=== PATIENT | male | born 1985 | race African-American/Black ===

== ENCOUNTER 2018-06-04 09:24 | Inpatient (IN) | payer OTHER ==
[2018-06-04 11:08] VITALS: BMI 15.6
--- NOTE | 2018-06-04 15:46 | HP ---
CIWA Score - Admission Criteria [facility] Guidelines: Admission for Medically Managed Detox: Requires at least one of the followin. CIWA greater than 12 2. Seizures within the past 24 hours 3. Delirium tremens within the past 24 hours 4. Hallucinations within the past 24 hours 5. Acute intervention needed for co occurring medical disorder 6. Acute intervention needed for co occurring psychiatric disorder 7. Severe withdrawal that cannot be handled at a lower level of care (continued vomiting, continued diarrhea, abnormal vital signs) requiring intravenous medication and/or fluids 8. Admission ROS S - HPI Chief Complaint: REHAB SERVICES FOR OPIOD/MARIJUANA/CRYSTAL METH/COCAINE DEPENDENCE. Allergies/Adverse Reactions: Allergies Allergy/AdvReac Type Severity Reaction Status Date / Time grape Allergy Severe Swelling Verified 06/04/18 14:00 NKDA Allergy Uncoded 06/04/18 14:00 History of Present Illness: PATIENT PRESENTS FOR REHAB SERVICES FOR POLYSUBSTANCE USE. THIS IS PATIENTS FIRST ADMISSION TO REHAB. PATIENT STARTED TAKING NON-PRESCRIBED PERCOCET 5 MONTHS, TAKES UP TO 50MG OF OXYCODONE DAILY. LAST TIME HE TOOK MEDICATION WAS 4 DAYS AGO. PATIENT INITIALLY STARTED TAKING PERCOCET PRESCRIPTION FOR CHRONIC BACK PAIN ONE YEAR AGO. PATIENT BEGAN BUYING PILLS AFTER STOPPED PRESCIBING MEDICATION. PATIENT ALSO SNIFFED COCAINE X 3 YEARS, AMOUNT VARIES, LAST USE WAS 4 DAYS AGO. + CRYSTAL METH USE, THC USE AND E PILLS USE. PMH INCLUDES CHRONIC BACK PAIN, DEPRESSION, AND HIV+ SINCE 02/2018-NO CURRENT TREATMENT. +SUICIDE ATTEMPT AT AGE 30. DENIES SI/HI. Exam Limitations: No Limitations - Ebola screening Have you traveled outside of the country in the last 21 days: No Have you had contact with anyone from an Ebola affected area: No Have you been sick,other than usual withdrawal symptoms: No Do you have a fever: No - Review of Systems Constitutional: Night Sweats, Changes in sleep, Unexplained wgt Loss EENT: reports: No Symptoms Reported Respiratory: reports: No Symptoms reported Cardiac: reports: No Symptoms Reported GI: reports: No Symptoms Reported : reports: No Symptoms Reported Musculoskeletal: reports: Back Pain, Muscle Pain Integumentary: reports: No Symptoms Reported Neuro: reports: No Symptoms reported Endocrine: reports: Unexplained Weight Loss Hematology: reports: No Symptoms Reported Psychiatric: reports: Orientated x3, Depressed Patient History - Patient Medical History Hx Anemia: No Hx Asthma: Yes Hx Chronic Obstructive Pulmonary Disease (COPD): No Hx Cancer: No Hx Cardiac Disorders: No Hx Congestive Heart Failure: No Hx Hypertension: No Hx Hypercholesterolemia: No Hx Pacemaker: No HX Cerebrovascular Accident: No Hx Seizures: No Hx Dementia: No Hx Diabetes: No Hx Gastrointestinal Disorders: Yes (acid reflux) Hx Liver Disease: No Hx Genitourinary Disorders: No Hx Sexually Transmitted Disorders: Yes (gonorrhea) Hx Renal Disease (ESRD): No Hx Thyroid Disease: No Hx Human Immunodeficiency Virus (HIV): Yes (DX 02/2018, NOT TREATED ) Hx Hepatitis C: No Hx Depression: Yes Hx Suicide Attempt: Yes (cut left wrist in 2016) Hx Bipolar Disorder: No Hx Schizophrenia: No - Patient Surgical History Past Surgical History: Yes Hx Neurologic Surgery: No Hx Cataract Extraction: No Hx Cardiac Surgery: No Hx Lung Surgery: No Hx Breast Surgery: No Hx Breast Biopsy: No Hx Appendectomy: Yes (at age 19) Hx Cholecystectomy: No Hx Genitourinary Surgery: No Hx Orthopedic Surgery: No Other Surgical History: tonsillectomy at age 24 Anesthesia Reaction: No - PPD History Previous Implant?: Yes Documented Results: Negative w/o proof Implanted On Prior [facility] Admission?: No PPD to be Administered?: Yes - Smoking Cessation Smoking history: Current every day smoker Have you smoked in the past 12 months: Yes Aproximately how many cigarettes per day: 20 Hx Chewing Tobacco Use: No Initiated information on smoking cessation: Yes 'Breaking Loose' booklet given: 06/04/18 - Substance & Tx. History Hx Alcohol Use: No Hx Substance Use: Yes Substance Use Type: Cocaine, Opiates Hx Substance Use Treatment: No - Substances Abused Percocet/Oxycodone Route: Oral Frequency: Daily Amount used: 4-5 tabs. (5-325 mg.) Age of first use: 32 Date of Last Use: 06/01/18 Crystal meth Route: Oral Frequency: 1-2 times per week Amount used: $200-300 Age of first use: 32 Date of Last Use: 05/28/18 Family Disease History - Family Disease History Family Disease History: Heart Disease: Grandparent (, MATERNAL GM) Admission Physical Exam BHS - Vital Signs Vital Signs: Vital Signs - 24 hr 06/04/18 11:07 Temperature 97.0 F L Pulse Rate 87 Respiratory 18 Rate Blood Pressure 130/85 - Physical General Appearance: Yes: No Apparent Distress, Appropriately Dressed, Thin, Anxious HEENTM: Yes: EOMI, Hearing grossly Normal, Normal ENT Inspection, Normocephalic , Normal Voice, MALIKA, Pharynx Normal Respiratory: Yes: Chest Non-Tender, Lungs Clear, Normal Breath Sounds, No Respiratory Distress, No Accessory Muscle Use Neck: Yes: No masses,lesions,Nodules, Supple, Trachea in good position Breast: Yes: Breast Exam Deferred Cardiology: Yes: Regular Rhythm, Regular Rate, S1, S2 Abdominal: Yes: Normal Bowel Sounds, Non Tender, Flat, Soft Genitourinary: Yes: Within Normal Limits Back: Yes: Normal Inspection, Muscle Spasm Musculoskeletal: Yes: full range of Motion, Gait Steady, Back pain Extremities: Yes: Normal Capillary Refill, Normal Inspection, Normal Range of Motion, Non-Tender Neurological: Yes: customer marketing manager II-XII NML intact, Fully Oriented, Alert, Motor Strength 5/5, Normal Response, Depressed Affect, Other (ANXIOUS) Integumentary: Yes: Normal Color, Dry, Warm Lymphatic: Yes: Within Normal Limits - Diagnostic (1) Opioid dependence Current Visit: Yes Status: Chronic Qualifiers: Substance use status: uncomplicated Qualified Code(s): F11.20 - Opioid dependence, uncomplicated (2) Cocaine dependence Current Visit: Yes Status: Chronic Qualifiers: Substance use status: uncomplicated Qualified Code(s): F14.20 - Cocaine dependence, uncomplicated (3) Marijuana dependence Current Visit: Yes Status: Chronic (4) Depressed affect Current Visit: Yes Status: Suspected (5) Weight loss Current Visit: Yes Status: Acute (6) HIV positive Current Visit: Yes Status: Chronic (7) Sleep disorder Current Visit: Yes Status: Chronic Cleared for Admission [facility] - Detox or Rehab Claeared for Rehab Admission: Yes [facility] Breath Alcohol Content Breath Alcohol Content: 0 Urine Drug Screen - Results Drug Screen Negative: No Urine Drug Screen Results: THC-Marijuana Inpatient Rehab Admission - Initial Determination Are CD services needed?: Yes Free of communicable disease: Yes Not in need of hospitalization: Yes - Rehab Admission Criteria Previous failed treatment: Yes Poor recovery environment: Yes Comorbidities: Yes Lacks judgement: No Patient is meeting Inpatient Rehab admission criteria:: Yes
[2018-06-04] MEDS ORDERED: MAGNESIUM CITRATE 300 ML BOTTLE PO PRN (15:54)
[2018-06-04] MEDS ORDERED: P-EPHED 60MG/TRIPROLIDI 2.5MG TABLET PO PRN (15:54)
[2018-06-04] MEDS ORDERED: guaiFENesin/D-METHORPHAN HB 10 ML UNIT-DOSE CUPS PO PRN (15:54)
[2018-06-04] MEDS ORDERED: MAGNESIUM HYDROX 2400MG/30ML ORAL SUSPENSION 30 ML CUP PO PRN (15:54)
[2018-06-04] MEDS ORDERED: MENTHOL/PHENOL 1 EACH UD MM PRN (15:54)
[2018-06-04] MEDS ORDERED: IBUPROFEN 400 MG TABLET (FP) PO PRN (15:54)
[2018-06-04] MEDS ORDERED: ALBUTEROL SO4 8 GM HFA INHALER IH PRN (15:56)
[2018-06-04] MEDS ORDERED: TUBERCULIN PPD 5 TU/0.1ML VIAL ID ONE (19:45)
[2018-06-04] MEDS: THIAMINE HCL 100 MG TABLET (FP) PO SCH (21:19)
[2018-06-04] MEDS: traZODone HCL 50 MG TABLET (FP) PO SCH (21:19)
[2018-06-05] MEDS: ACETAMINOPHEN 325 MG TABLET (FP) PO PRN (00:14)
[2018-06-05] MEDS: MAG HYDROX/AL HYDROX/SIMETH 30 ML UNIT-DOSE CUP PO PRN (00:28)
[2018-06-05 01:54] LABS: URINE APPEARANCE SLCLOUDY; URINE GLUCOSE (UA) NEGATIVE (NEGATIVE); URINE KETONE NEGATIVE (NEGATIVE); URINE LEUK ESTERASE NEGATIVE (NEGATIVE); URINE NITRITE NEGATIVE (NEGATIVE); URINE PROTEIN 1+ (NEGATIVE); URINE UROBILINOGEN 4.0 E.U/dl mg/dL (0.2-1.0)
[2018-06-05 01:59] LABS: URINE COLOR YELLOW
[2018-06-05 02:39] LABS: EPI CELLS RARE /HPF (FEW); URINE BACTERIA RARE /hpf (NONE SEEN); URINE MUCUS FEW
[2018-06-05 10:08] LABS: HEMOGLOBIN 11.5 GM/dL (11.7-16.9); MCH 29.3 pg (25.7-33.7); MCHC 33.7 g/dl (32.0-35.9); MEAN PLT VOLUME 7.6 fl (7.5-11.1); PLATELET COUNT 317 K/MM3 (134-434); RBC 3.91 M/mm3 (4.00-5.60); RDW 14.1 % (11.9-15.9); WHITE BLOOD COUNT 8.6 K/mm3 (4.0-10.0)
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
[2018-06-05] MEDS: NICOTINE 21 MG/24 HOURS TOPICAL PATCH TD SCH (11:00)
[2018-06-05] MEDS: PRENATAL VITAMINS W/ FOLIC ACID TABLET (FP) PO SCH (11:00)
[2018-06-05 11:05] LABS: ALBUMIN 3.6 g/dl (3.4-5.0); ALK PHOS 107 U/L (45-117); ANION GAP 10 MMOL/L (8-16); BILIRUBIN,TOTAL 0.3 mg/dL (0.2-1); BLOOD UREA NITROGEN 11 mg/dL (7-18); CALCIUM 8.9 mg/dL (8.5-10.1); CHLORIDE 99 mmol/L (98-107); CO2 31 mmol/L (21-32); CREATININE 0.9 mg/dL (0.55-1.3); GLUCOSE,RANDOM 98 mg/dL (74-106); POTASSIUM 3.5 mmol/L (3.5-5.1); SGOT/AST 15 U/L (15-37); SGPT/ALT 12 U/L (13-61); SODIUM 139 mmol/L (136-145); TOT PROT 7.9 g/dl (6.4-8.2)
--- NOTE | 2018-06-05 11:59 | EKG ---
Test Reason : Blood Pressure : / mmHG Vent. Rate : 090 BPM Atrial Rate : 090 BPM P-R Int : 140 ms QRS Dur : 088 ms QT Int : 346 ms P-R-T Axes : 084 080 071 degrees QTc Int : 423 ms NORMAL SINUS RHYTHM RIGHT ATRIAL ENLARGEMENT POSSIBLE RIGHT VENTRICULAR HYPERTROPHY NONSPECIFIC T WAVE ABNORMALITY ABNORMAL ECG NO PREVIOUS ECGS AVAILABLE Confirmed by GIOVANI BARTH MD ([id number]) on 06/05/2018 11:59:28 AM Referred By: Confirmed By:GIOVANI BARTH MD
[2018-06-05] MEDS: PANTOPRAZOLE 40 MG TABLET (FP) PO SCH (12:40)
--- NOTE | 2018-06-05 13:24 | PN ---
[facility] Progress Note Note: PATIENT NEW ADMISSION TO REHAB YESTERDAY EVENING FOR OPIOD, COCAINE AND THC DEPENDENCE. PATIENT C/O BODY ACHES, ANXIETY RESTLESSNESS AND HEARTBURN. PATIENT REPORTS HE IS NEWLY DIAGNOSED WITH HIV BUT HAS NOT BEEN TREATED. [place]CP [place]. PATIENT ALSO REQUESTING TO START SUBOXONE TREATMENT. LAST TIME HE TOOK OXYCODONE WAS 5 DAYS AGO PATIENT DETOXED HIMSELF PRIOR TO ADMISSION. +H/O GASTRITIS. Vital Signs Temperature 97.9 F 06/05/18 06:49 Pulse Rate 65 06/05/18 06:49 Respiratory Rate 18 06/05/18 06:49 Blood Pressure 108/75 06/05/18 06:49 O2 Sat by Pulse Oximetry (%) Laboratory Tests 06/04/18 06/05/18 06/05/18 22:27 05:50 05:50 WBC 8.6 RBC 3.91 L Hgb 11.5 L Hct 34.0 L MCV 87.0 MCH 29.3 MCHC 33.7 RDW 14.1 Plt Count 317 MPV 7.6 Sodium 139 Potassium 3.5 Chloride 99 Carbon Dioxide 31 Anion Gap 10 BUN 11 Creatinine 0.9 Creat Clearance w eGFR > 60 Random Glucose 98 Calcium 8.9 Total Bilirubin 0.3 AST 15 ALT 12 L Alkaline Phosphatase 107 Total Protein 7.9 Albumin 3.6 Urine Color Yellow Urine Appearance Slcloudy Urine pH 6.0 Ur Specific [place] 1.026 Urine Protein 1+ H Urine Glucose (UA) Negative Urine Ketones Negative Urine Blood Negative Urine Nitrite Negative Urine Bilirubin 2.0 Urine Urobilinogen 4.0 e.u/dl Ur Leukocyte Esterase Negative Urine WBC (Auto) 3 Urine RBC (Auto) 5 Ur Epithelial Cells Rare Urine Bacteria Rare Urine Mucus Few PE: ALERT AND ORIENTED X 3 SKIN WARM AND DRY CAR S1S2 RESP CTA BL GI SOFT, BS+, NT EXT FULL ROM, AMB AD ESTRADA +ANXIETY AND RESTLESSNESS A/P: WITHDRAWAL SX GERD START PROTONIX 40MG DAILY SPOKE WITH PATIENT AND COUNSELOR JONAH REGARDING CONNECTION TO OUTPATIENT PROGRAM. PATIENT LIVES IN [place] AND GIVEN CONTACT INFORMATION FOR [facility] AT [address] [place] [id number] . PCP AT THAT FACILITY, DR. RODRIGUEZ, IS HIV/HEP C/PCP AND SUBOXONE PROVIDER. PATIENT ENCOURAGED TO MAKE APPOINTMENT TODAY FOR WHEN HE LEAVES REHAB. ONCE APPT MADE AND CONFIRMED WILL START PATIENT ON SUBOXONE. IN MEANTIME, WILL START FLEXERIL FOR BODY ACHES AND CLONIDINE FOR ANXIETY/ WITHDRAWAL SX WITH PARAMETERS TO HOLD FOR BP EQUAL TO OR LESS THAN 100/60. CONTINUE TO MONITOR CLINICALLY
[2018-06-05] MEDS: CYCLOBENZAPRINE HCL 5 MG TABLET PO SCH ×2 (14:38→21:22)
[2018-06-05] MEDS: cloNIDine HCL 0.1 MG TABLET PO PRN (14:38)
[2018-06-05] MEDS: THIAMINE HCL 100 MG TABLET (FP) PO SCH (21:22)
[2018-06-05] MEDS: MIRTAZAPINE 30 MG TABLET (FP) PO SCH (21:22)
[2018-06-05] MEDS: traZODone HCL 50 MG TABLET (FP) PO SCH (21:22)
[2018-06-06] MEDS: CYCLOBENZAPRINE HCL 5 MG TABLET PO SCH ×3 (06:43→21:26)
[2018-06-06] MEDS: NICOTINE 21 MG/24 HOURS TOPICAL PATCH TD SCH (10:06)
[2018-06-06] MEDS: PRENATAL VITAMINS W/ FOLIC ACID TABLET (FP) PO SCH (10:06)
[2018-06-06] MEDS: PANTOPRAZOLE 40 MG TABLET (FP) PO SCH (10:06)
[2018-06-06 13:11] LABS: RPR REACTIVE 1:8 (NONREACTIVE)
[2018-06-06] MEDS: NICOTINE POLACRILEX 2 MG GUM BC PRN (14:56)
[2018-06-06] MEDS ORDERED: BUPRENORPHINE/NALOXONE 2 MG/0.5 MG FILM PACKET SL ONE (15:00)
[2018-06-06 15:42] LABS: TREPONEMA ANTIBODY REACTIVE (NONREACTIVE)
--- NOTE | 2018-06-06 16:27 | PN ---
[facility] COWS - Scale Resting Pulse: 1= [place] 81-100 Sweatin= No chills or Flushing Restless Observation: 1= Difficult to Sit Still Pupil Size: 2= Moderately Dilated Bone or Joint Aches: 2= Severe Diffuse Aches Runny Nose/ Eye Tearin= Nasal Congestion GI Upset > 30mins: 2= Nausea/Diarrhea Tremor Observation of Outstretched Hands: 0= None Yawning Observation: 0= None Anxiety or Irritability: 2=Irritable/Anxious Goose Flesh Skin: 0=Smooth Skin COWS Score: 11 S Progress Note (SOAP) Subjective: PATIENT C/O OPIOD CRAVING, BODY ACHES, CHILLS AND ANXIETY. REQUESTED TO START SUBOXONE. COUNSELOR JONAH WAS ABLE TO CONNECT PATIENT TO [facility] IN [place], [place] AND APPT MADE FOR 06/25/17. PATIENT STATES HE WILL START THERE AND THEN MAYBE TRANSFER TO [facility] TO CONTINUE SUBOXONE TREATMENT AND HIV MANAGEMENT. WOMEN'S HEALTH CARE NURSE PRACTITIONER ALSO SPOKE WITH PATIENT REGARDING +RPR AND T.PALLIDIUM RESULTS. PATIENT STATE HE WAS TREATED IN PAST FOR SYPHILIS MORE THAN 2 YEARS AGO. PATIENT DENIES URINARY DISCOMFORT, FEVER AND PENILE DISCHARGE BUT IS NEWLY DX WITH HIV SINCE 02/2018. PATIENT HAS ENGAGED IN UNPROTECTED SEX IN PAST MONTHS. Vital Signs Temperature 97.5 F L 06/06/18 06:59 Pulse Rate 96 H 06/06/18 09:30 Respiratory Rate 18 06/06/18 09:30 Blood Pressure 121/69 06/06/18 09:30 O2 Sat by Pulse Oximetry (%) Laboratory Tests 06/04/18 06/05/18 06/05/18 22:27 05:50 05:50 WBC 8.6 RBC 3.91 L Hgb 11.5 L Hct 34.0 L MCV 87.0 MCH 29.3 MCHC 33.7 RDW 14.1 Plt Count 317 MPV 7.6 Sodium 139 Potassium 3.5 Chloride 99 Carbon Dioxide 31 Anion Gap 10 BUN 11 Creatinine 0.9 Creat Clearance w eGFR > 60 Random Glucose 98 Calcium 8.9 Total Bilirubin 0.3 AST 15 ALT 12 L Alkaline Phosphatase 107 Total Protein 7.9 Albumin 3.6 Urine Color Yellow Urine Appearance Slcloudy Urine pH 6.0 Ur Specific [place] 1.026 Urine Protein 1+ H Urine Glucose (UA) Negative Urine Ketones Negative Urine Blood Negative Urine Nitrite Negative Urine Bilirubin 2.0 Urine Urobilinogen 4.0 e.u/dl Ur Leukocyte Esterase Negative Urine WBC (Auto) 3 Urine RBC (Auto) 5 Ur Epithelial Cells Rare Urine Bacteria Rare Urine Mucus Few RPR Titer T.pallidum Ab (A) 06/05/18 05:50 WBC RBC Hgb Hct MCV MCH MCHC RDW Plt Count MPV Sodium Potassium Chloride Carbon Dioxide Anion Gap BUN Creatinine Creat Clearance w eGFR Random Glucose Calcium Total Bilirubin AST ALT Alkaline Phosphatase Total Protein Albumin Urine Color Urine Appearance Urine pH Ur Specific [place] Urine Protein Urine Glucose (UA) Urine Ketones Urine Blood Urine Nitrite Urine Bilirubin Urine Urobilinogen Ur Leukocyte Esterase Urine WBC (Auto) Urine RBC (Auto) Ur Epithelial Cells Urine Bacteria Urine Mucus RPR Titer Reactive 1:8 H T.pallidum Ab (A) Reactive Objective: 06/06/18 16:26 PE: ALERT AND ORIENTED X 3 PUPILS MODERATELY DILATED, EOMS INTACT BL SKIN WARM AND DRY EXT FULL ROM, AMB AD ESTRADA +ANXIETY, RESTLESSNESS Assessment: 06/06/18 16:27 SYPHILIS, LIKELY RECENT REINFECTION WITHDRAWAL SX Plan: WILL START SUBOXONE 2MG TODAY THEN DAILY STARTING TOMORROW START PENICILLIN 2.4 UNITS IM WEEKLY STARTING TOMORROW SATURDAY AND THEN WEEKLY X 3 DOSES CONTINUE TO MONITOR CLINICALLY
[2018-06-06] MEDS: MIRTAZAPINE 30 MG TABLET (FP) PO SCH (21:26)
[2018-06-06] MEDS: traZODone HCL 50 MG TABLET (FP) PO SCH (21:26)
[2018-06-06] MEDS: THIAMINE HCL 100 MG TABLET (FP) PO SCH (21:26)
[2018-06-06] MEDS: MELATONIN 5 MG TABLETS PO PRN (21:28)
[2018-06-07] MEDS: SUVOREXANT 10 MG TABLET PO PRN (00:38)
[2018-06-07] MEDS: MAG HYDROX/AL HYDROX/SIMETH 30 ML UNIT-DOSE CUP PO PRN (00:38)
[2018-06-07] MEDS: CYCLOBENZAPRINE HCL 5 MG TABLET PO SCH ×3 (05:52→21:42)
[2018-06-07] MEDS ORDERED: BUPRENORPHINE/NALOXONE 2 MG/0.5 MG FILM PACKET SL SCH (10:00)
[2018-06-07] MEDS: PENICILLIN G BENZATHINE 2,400,000 UNIT/4 ML PFS IM SCH (10:33)
[2018-06-07] MEDS: PANTOPRAZOLE 40 MG TABLET (FP) PO SCH (10:33)
[2018-06-07] MEDS: PRENATAL VITAMINS W/ FOLIC ACID TABLET (FP) PO SCH (10:33)
[2018-06-07] MEDS: NICOTINE 21 MG/24 HOURS TOPICAL PATCH TD SCH (10:33)
[2018-06-07] MEDS: BUPRENORPHINE/NALOXONE 2 MG/0.5 MG FILM PACKET SL SCH (10:33)
[2018-06-07] MEDS: hydrOXYzine PAMOATE 50 MG CAPSULE (FP) PO PRN ×3 (10:40→21:42)
[2018-06-07] MEDS: NICOTINE POLACRILEX 2 MG GUM BC PRN (14:10)
[2018-06-07] MEDS: THIAMINE HCL 100 MG TABLET (FP) PO SCH (21:42)
[2018-06-07] MEDS: MIRTAZAPINE 30 MG TABLET (FP) PO SCH (21:42)
[2018-06-07] MEDS: MELATONIN 5 MG TABLETS PO PRN (21:42)
[2018-06-07] MEDS: traZODone HCL 50 MG TABLET (FP) PO SCH (21:42)
[2018-06-08] MEDS: hydrOXYzine PAMOATE 50 MG CAPSULE (FP) PO PRN ×4 (02:34→21:14)
[2018-06-08] MEDS: CYCLOBENZAPRINE HCL 5 MG TABLET PO SCH ×2 (06:12→14:32)
[2018-06-08] MEDS: BUPRENORPHINE/NALOXONE 2 MG/0.5 MG FILM PACKET SL SCH (10:04)
[2018-06-08] MEDS: PRENATAL VITAMINS W/ FOLIC ACID TABLET (FP) PO SCH (10:04)
[2018-06-08] MEDS: PANTOPRAZOLE 40 MG TABLET (FP) PO SCH (10:04)
[2018-06-08] MEDS: NICOTINE 21 MG/24 HOURS TOPICAL PATCH TD SCH (10:05)
[2018-06-08] MEDS: NICOTINE POLACRILEX 2 MG GUM BC PRN (10:06)
[2018-06-08] MEDS: THIAMINE HCL 100 MG TABLET (FP) PO SCH (21:14)
[2018-06-08] MEDS: SUVOREXANT 10 MG TABLET PO PRN (21:14)
[2018-06-08] MEDS: MIRTAZAPINE 30 MG TABLET (FP) PO SCH (21:14)
[2018-06-08] MEDS: traZODone HCL 50 MG TABLET (FP) PO SCH (21:14)
[2018-06-08] MEDS: CYCLOBENZAPRINE HCL 10 MG TABLET (FP) PO SCH (21:59)
[2018-06-09] MEDS: CYCLOBENZAPRINE HCL 10 MG TABLET (FP) PO SCH ×3 (06:06→21:38)
[2018-06-09] MEDS: hydrOXYzine PAMOATE 50 MG CAPSULE (FP) PO PRN ×3 (10:41→21:38)
[2018-06-09] MEDS: BUPRENORPHINE/NALOXONE 2 MG/0.5 MG FILM PACKET SL SCH (10:41)
[2018-06-09] MEDS: PANTOPRAZOLE 40 MG TABLET (FP) PO SCH (10:41)
[2018-06-09] MEDS: NICOTINE 21 MG/24 HOURS TOPICAL PATCH TD SCH (10:41)
[2018-06-09] MEDS: PRENATAL VITAMINS W/ FOLIC ACID TABLET (FP) PO SCH (10:41)
[2018-06-09] MEDS: SUVOREXANT 10 MG TABLET PO PRN (21:38)
[2018-06-09] MEDS: MIRTAZAPINE 30 MG TABLET (FP) PO SCH (21:38)
[2018-06-09] MEDS: traZODone HCL 50 MG TABLET (FP) PO SCH (21:38)
[2018-06-09] MEDS: THIAMINE HCL 100 MG TABLET (FP) PO SCH (21:38)
[2018-06-09] MEDS: NICOTINE POLACRILEX 2 MG GUM BC PRN (21:39)
[2018-06-10] MEDS: CYCLOBENZAPRINE HCL 10 MG TABLET (FP) PO SCH ×3 (06:04→21:47)
[2018-06-10] MEDS: PRENATAL VITAMINS W/ FOLIC ACID TABLET (FP) PO SCH (09:50)
[2018-06-10] MEDS: PANTOPRAZOLE 40 MG TABLET (FP) PO SCH (09:50)
[2018-06-10] MEDS: hydrOXYzine PAMOATE 50 MG CAPSULE (FP) PO PRN ×2 (09:50→14:11)
[2018-06-10] MEDS: BUPRENORPHINE/NALOXONE 2 MG/0.5 MG FILM PACKET SL SCH (09:51)
[2018-06-10] MEDS: NICOTINE 21 MG/24 HOURS TOPICAL PATCH TD SCH (09:51)
[2018-06-10] MEDS: MAG HYDROX/AL HYDROX/SIMETH 30 ML UNIT-DOSE CUP PO PRN (11:36)
--- NOTE | 2018-06-10 11:39 | PN ---
B[facility] COWS - Scale Resting Pulse: 1= [place] 81-100 Sweatin= Chills/Flushing Restless Observation: 0= Sits Still Pupil Size: 1= Pupils >than Normal Bone or Joint Aches: 2= Severe Diffuse Aches Runny Nose/ Eye Tearin= None GI Upset > 30mins: 2= Nausea/Diarrhea Tremor Observation of Outstretched Hands: 1= Tremor [place], Not Seen Yawning Observation: 0= None Anxiety or Irritability: 1=Feels Anxious/Irritable Goose Flesh Skin: 0=Smooth Skin COWS Score: 9 S Progress Note (SOAP) Subjective: PATIENT SEEN FOR C/O DIARRHEA, CHILLS AND BODY ACHES. PATIENT RESTING IN BED COVERED IN BLANKETS. Objective: 06/10/18 11:34 Vital Signs Temperature 98.5 F 06/10/18 06:46 Pulse Rate 97 H 06/10/18 06:46 Respiratory Rate 06/10/18 06:46 Blood Pressure 98/67 06/10/18 06:46 O2 Sat by Pulse Oximetry (%) Laboratory Tests 06/04/18 06/05/18 06/05/18 22:27 05:50 05:50 WBC 8.6 RBC 3.91 L Hgb 11.5 L Hct 34.0 L MCV 87.0 MCH 29.3 MCHC 33.7 RDW 14.1 Plt Count 317 MPV 7.6 Sodium 139 Potassium 3.5 Chloride 99 Carbon Dioxide 31 Anion Gap 10 BUN 11 Creatinine 0.9 Creat Clearance w eGFR > 60 Random Glucose 98 Calcium 8.9 Total Bilirubin 0.3 AST 15 ALT 12 L Alkaline Phosphatase 107 Total Protein 7.9 Albumin 3.6 Urine Color Yellow Urine Appearance Slcloudy Urine pH 6.0 Ur Specific [place] 1.026 Urine Protein 1+ H Urine Glucose (UA) Negative Urine Ketones Negative Urine Blood Negative Urine Nitrite Negative Urine Bilirubin 2.0 Urine Urobilinogen 4.0 e.u/dl Ur Leukocyte Esterase Negative Urine WBC (Auto) 3 Urine RBC (Auto) 5 Ur Epithelial Cells Rare Urine Bacteria Rare Urine Mucus Few RPR Titer T.pallidum Ab (A) 06/05/18 05:50 WBC RBC Hgb Hct MCV MCH MCHC RDW Plt Count MPV Sodium Potassium Chloride Carbon Dioxide Anion Gap BUN Creatinine Creat Clearance w eGFR Random Glucose Calcium Total Bilirubin AST ALT Alkaline Phosphatase Total Protein Albumin Urine Color Urine Appearance Urine pH Ur Specific [place] Urine Protein Urine Glucose (UA) Urine Ketones Urine Blood Urine Nitrite Urine Bilirubin Urine Urobilinogen Ur Leukocyte Esterase Urine WBC (Auto) Urine RBC (Auto) Ur Epithelial Cells Urine Bacteria Urine Mucus RPR Titer Reactive 1:8 H T.pallidum Ab (MHA) Reactive PE: SKIN WARM AND DRY ALERT AND ORIENTED X 3 CAR S1S2 RESP CTA BL GI SOFT, FLAT BS + NT EXT FULL ROM, NO EDEMA Assessment: 06/10/18 11:35 WITHDRAWAL SX Plan: WILL INCREASE SUBOXONE TO 4MG DAILY PATIENT CURRENTLY BEING TREATED FOR SYPHILIS, #2 DOSE DUE THIS Saturday06/14/18 SPOKE WITH PATIENT AT LENGTH REGARDING CURRENT HIV STATUS AND RISK FOR OPPORTUNISTIC INFECTIONS. PATIENT EDUCATED TO REPORTS SYMPTOMS OF COUGH, FEVER, CHEST PAIN AND PERSISTENT DIARRHEA TO NURSING STAFF/PROVIDER. PATIENT ACKNOWLEDGES NEED TO HAVE TREATMENT FOR HIV AND PREFERS TO DO SO ONCE D/C FROM REHAB. PATIENT IS CONNECT TO [facility] AND HAS APPT SCHEDULE FOR . WILL CONTINUE TO MONITOR PATIENT CLINICALLY
[2018-06-10] MEDS: NICOTINE POLACRILEX 2 MG GUM BC PRN ×2 (14:12→21:50)
[2018-06-10] MEDS ORDERED: BUPRENORPHINE/NALOXONE 2 MG/0.5 MG FILM PACKET SL ONE (18:00)
[2018-06-10] MEDS: traZODone HCL 50 MG TABLET (FP) PO SCH (21:47)
[2018-06-10] MEDS: THIAMINE HCL 100 MG TABLET (FP) PO SCH (21:47)
[2018-06-10] MEDS: MIRTAZAPINE 30 MG TABLET (FP) PO SCH (21:47)
[2018-06-10] MEDS: SUVOREXANT 10 MG TABLET PO PRN (21:49)
[2018-06-11] MEDS: CYCLOBENZAPRINE HCL 10 MG TABLET (FP) PO SCH ×3 (06:00→21:42)
[2018-06-11] MEDS: PRENATAL VITAMINS W/ FOLIC ACID TABLET (FP) PO SCH (09:48)
[2018-06-11] MEDS: PANTOPRAZOLE 40 MG TABLET (FP) PO SCH (09:49)
[2018-06-11] MEDS: hydrOXYzine PAMOATE 50 MG CAPSULE (FP) PO PRN ×3 (09:49→21:42)
[2018-06-11] MEDS: BUPRENORPHINE/NALOXONE 2 MG/0.5 MG FILM PACKET SL SCH (09:49)
[2018-06-11] MEDS: NICOTINE 21 MG/24 HOURS TOPICAL PATCH TD SCH (09:49)
[2018-06-11] MEDS: NICOTINE POLACRILEX 2 MG GUM BC PRN ×2 (16:53→21:43)
[2018-06-11] MEDS: MIRTAZAPINE 30 MG TABLET (FP) PO SCH (21:42)
[2018-06-11] MEDS: SUVOREXANT 10 MG TABLET PO PRN (21:42)
[2018-06-11] MEDS: THIAMINE HCL 100 MG TABLET (FP) PO SCH (21:42)
[2018-06-11] MEDS: traZODone HCL 50 MG TABLET (FP) PO SCH (21:42)
[2018-06-12] MEDS: CYCLOBENZAPRINE HCL 10 MG TABLET (FP) PO SCH ×3 (05:53→21:33)
[2018-06-12] MEDS: PANTOPRAZOLE 40 MG TABLET (FP) PO SCH (10:26)
[2018-06-12] MEDS: NICOTINE 21 MG/24 HOURS TOPICAL PATCH TD SCH (10:26)
[2018-06-12] MEDS: BUPRENORPHINE/NALOXONE 2 MG/0.5 MG FILM PACKET SL SCH (10:26)
[2018-06-12] MEDS: PRENATAL VITAMINS W/ FOLIC ACID TABLET (FP) PO SCH (10:26)
[2018-06-12] MEDS: hydrOXYzine PAMOATE 50 MG CAPSULE (FP) PO PRN ×3 (10:26→21:33)
[2018-06-12] MEDS: traZODone HCL 50 MG TABLET (FP) PO SCH (21:33)
[2018-06-12] MEDS: MIRTAZAPINE 30 MG TABLET (FP) PO SCH (21:33)
[2018-06-12] MEDS: SUVOREXANT 10 MG TABLET PO PRN (21:33)
[2018-06-12] MEDS: THIAMINE HCL 100 MG TABLET (FP) PO SCH (21:33)
[2018-06-13] MEDS: CYCLOBENZAPRINE HCL 10 MG TABLET (FP) PO SCH ×3 (06:37→21:38)
[2018-06-13] MEDS: PANTOPRAZOLE 40 MG TABLET (FP) PO SCH (09:40)
[2018-06-13] MEDS: PRENATAL VITAMINS W/ FOLIC ACID TABLET (FP) PO SCH (09:42)
[2018-06-13] MEDS: NICOTINE 21 MG/24 HOURS TOPICAL PATCH TD SCH (09:42)
[2018-06-13] MEDS: BUPRENORPHINE/NALOXONE 2 MG/0.5 MG FILM PACKET SL SCH (09:44)
[2018-06-13] MEDS: hydrOXYzine PAMOATE 50 MG CAPSULE (FP) PO PRN ×3 (09:44→21:38)
[2018-06-13] MEDS: NICOTINE POLACRILEX 2 MG GUM BC PRN (15:09)
[2018-06-13] MEDS: SUVOREXANT 10 MG TABLET PO PRN (21:38)
[2018-06-13] MEDS: traZODone HCL 50 MG TABLET (FP) PO SCH (21:38)
[2018-06-13] MEDS: MIRTAZAPINE 30 MG TABLET (FP) PO SCH (21:38)
[2018-06-13] MEDS: THIAMINE HCL 100 MG TABLET (FP) PO SCH (21:38)
[2018-06-14] MEDS: CYCLOBENZAPRINE HCL 10 MG TABLET (FP) PO SCH ×3 (06:14→21:14)
[2018-06-14] MEDS: NICOTINE 21 MG/24 HOURS TOPICAL PATCH TD SCH (10:05)
[2018-06-14] MEDS: PRENATAL VITAMINS W/ FOLIC ACID TABLET (FP) PO SCH (10:05)
[2018-06-14] MEDS: PANTOPRAZOLE 40 MG TABLET (FP) PO SCH (10:05)
[2018-06-14] MEDS: BUPRENORPHINE/NALOXONE 2 MG/0.5 MG FILM PACKET SL SCH (10:06)
[2018-06-14] MEDS: hydrOXYzine PAMOATE 50 MG CAPSULE (FP) PO PRN ×2 (10:06→21:15)
[2018-06-14] MEDS: PENICILLIN G BENZATHINE 2,400,000 UNIT/4 ML PFS IM SCH (10:11)
[2018-06-14] MEDS: NICOTINE POLACRILEX 2 MG GUM BC PRN (13:25)
[2018-06-14] MEDS: MIRTAZAPINE 30 MG TABLET (FP) PO SCH (21:14)
[2018-06-14] MEDS: traZODone HCL 50 MG TABLET (FP) PO SCH (21:14)
[2018-06-14] MEDS: SUVOREXANT 10 MG TABLET PO PRN (21:14)
[2018-06-14] MEDS: THIAMINE HCL 100 MG TABLET (FP) PO SCH (21:14)
[2018-06-15] MEDS: CYCLOBENZAPRINE HCL 10 MG TABLET (FP) PO SCH ×3 (06:05→21:50)
[2018-06-15] MEDS: PRENATAL VITAMINS W/ FOLIC ACID TABLET (FP) PO SCH (09:47)
[2018-06-15] MEDS: PANTOPRAZOLE 40 MG TABLET (FP) PO SCH (09:47)
[2018-06-15] MEDS: NICOTINE 21 MG/24 HOURS TOPICAL PATCH TD SCH (09:47)
[2018-06-15] MEDS: BUPRENORPHINE/NALOXONE 2 MG/0.5 MG FILM PACKET SL SCH (09:48)
[2018-06-15] MEDS: hydrOXYzine PAMOATE 50 MG CAPSULE (FP) PO PRN ×3 (09:48→21:51)
[2018-06-15] MEDS: traZODone HCL 50 MG TABLET (FP) PO SCH (21:49)
[2018-06-15] MEDS: THIAMINE HCL 100 MG TABLET (FP) PO SCH (21:49)
[2018-06-15] MEDS: MIRTAZAPINE 30 MG TABLET (FP) PO SCH (21:50)
[2018-06-15] MEDS: SUVOREXANT 10 MG TABLET PO PRN (21:51)
[2018-06-15] MEDS ORDERED: SUVOREXANT 10 MG TABLET PO PRN (22:00)
[2018-06-16] MEDS: NICOTINE POLACRILEX 2 MG GUM BC PRN (06:01)
[2018-06-16] MEDS: CYCLOBENZAPRINE HCL 10 MG TABLET (FP) PO SCH ×3 (06:01→21:42)
[2018-06-16] MEDS: NICOTINE 21 MG/24 HOURS TOPICAL PATCH TD SCH (10:08)
[2018-06-16] MEDS: PRENATAL VITAMINS W/ FOLIC ACID TABLET (FP) PO SCH (10:09)
[2018-06-16] MEDS: BUPRENORPHINE/NALOXONE 2 MG/0.5 MG FILM PACKET SL SCH (10:09)
[2018-06-16] MEDS: PANTOPRAZOLE 40 MG TABLET (FP) PO SCH (10:09)
[2018-06-16] MEDS: hydrOXYzine PAMOATE 50 MG CAPSULE (FP) PO PRN ×3 (10:10→21:42)
[2018-06-16] MEDS: cloNIDine HCL 0.1 MG TABLET PO PRN (13:35)
[2018-06-16] MEDS: LOPERAMIDE HCL 2 MG CAPSULE PO PRN (21:41)
[2018-06-16] MEDS: THIAMINE HCL 100 MG TABLET (FP) PO SCH (21:41)
[2018-06-16] MEDS: traZODone HCL 50 MG TABLET (FP) PO SCH (21:42)
[2018-06-16] MEDS: MIRTAZAPINE 30 MG TABLET (FP) PO SCH (21:42)
[2018-06-17] MEDS: CYCLOBENZAPRINE HCL 10 MG TABLET (FP) PO SCH ×3 (05:46→21:37)
[2018-06-17] MEDS: NICOTINE POLACRILEX 2 MG GUM BC PRN (05:46)
[2018-06-17] MEDS: LOPERAMIDE HCL 2 MG CAPSULE PO PRN (05:46)
--- NOTE | 2018-06-17 09:49 | PN ---
[facility] Progress Note Note: PATIENT C/O DIARRHEA WITH NO RELIEF FROM IMMODIUM SINCE YESTERDAY. STATES HE HAD OVER 5 LOOSE BOWEL MOVEMENTS IN 24 HOURS. PATIENT DENIES NAUSEA, FEVER AND VOMITING. Vital Signs Temperature 98.7 F 06/17/18 06:33 Pulse Rate 115 H 06/17/18 06:33 Respiratory Rate 20 06/17/18 06:33 Blood Pressure 107/67 06/17/18 06:33 O2 Sat by Pulse Oximetry (%) PE: ALERT AND ORIENTED X 3 SKIN WARM AND DRY GI SOFT, FLAT, BS + EXT FULL ROM, NO EDEMA A/P: DIARRHEA WILL D/C IMMODIUM START LOMOTIL PRN GINGERALE TOLERATED CONTINUE TO MONITOR CLINICALLY
[2018-06-17] MEDS: PRENATAL VITAMINS W/ FOLIC ACID TABLET (FP) PO SCH (09:54)
[2018-06-17] MEDS: BUPRENORPHINE/NALOXONE 2 MG/0.5 MG FILM PACKET SL SCH (09:54)
[2018-06-17] MEDS: PANTOPRAZOLE 40 MG TABLET (FP) PO SCH (09:54)
[2018-06-17] MEDS: hydrOXYzine PAMOATE 50 MG CAPSULE (FP) PO PRN ×3 (09:55→21:38)
[2018-06-17] MEDS: NICOTINE 21 MG/24 HOURS TOPICAL PATCH TD SCH (09:55)
[2018-06-17] MEDS: DIPHENOXYLATE 2.5/ATROPINE.025 1 COMBO TABLET PO PRN ×2 (09:57→21:41)
[2018-06-17] MEDS: traZODone HCL 50 MG TABLET (FP) PO SCH (21:37)
[2018-06-17] MEDS: MIRTAZAPINE 30 MG TABLET (FP) PO SCH (21:37)
[2018-06-17] MEDS: THIAMINE HCL 100 MG TABLET (FP) PO SCH (22:13)
[2018-06-18] MEDS: DIPHENOXYLATE 2.5/ATROPINE.025 1 COMBO TABLET PO PRN ×2 (05:47→21:30)
[2018-06-18] MEDS: CYCLOBENZAPRINE HCL 10 MG TABLET (FP) PO SCH ×3 (05:47→21:29)
[2018-06-18] MEDS: PRENATAL VITAMINS W/ FOLIC ACID TABLET (FP) PO SCH (10:34)
[2018-06-18] MEDS: PANTOPRAZOLE 40 MG TABLET (FP) PO SCH (10:34)
[2018-06-18] MEDS: NICOTINE 21 MG/24 HOURS TOPICAL PATCH TD SCH (10:34)
[2018-06-18] MEDS: hydrOXYzine PAMOATE 50 MG CAPSULE (FP) PO PRN ×2 (10:41→21:29)
[2018-06-18] MEDS: cloNIDine HCL 0.1 MG TABLET PO PRN (10:41)
--- NOTE | 2018-06-18 11:39 | PN ---
[facility] Progress Note Note: PATIENT SEEN FOR C/O DIARRHEA. PATIENT STATES DIARRHEA LEAKS OUT OF RECTUM INVOLUNTARILY. PATIENT DENIES CHEST PAIN, SOB, N/V, FOUL STOOL ODOR AND FEVER. CURRENTLY ON BICILLIN INJECTION FOR SYPHILIS. PATIENT ANXIOUS ABOUT SYMPTOMS. Vital Signs Temperature 98.3 F 06/18/18 06:37 Pulse Rate 113 H 06/18/18 06:37 Respiratory Rate 20 06/18/18 06:37 Blood Pressure 114/85 06/18/18 06:37 O2 Sat by Pulse Oximetry (%) PE: ALERT AND ORIENTED X 3 SKIN WARM AND DRY EXT FULL ROM, NO EDEMA AMB AD ESTRADA +ANXIETY A/P: DIARRHEA SINUS FREQUENT TACHYCARDIA WILL CONTINUE LOMOTIL ENCOURAGE ORAL FLUIDS LACTOBACILLUS ONE TAB DAILY ORDERED STOOL FOR CDIFF REPEAT EKG TODAY
[2018-06-18] MEDS: BUPRENORPHINE/NALOXONE 2 MG/0.5 MG FILM PACKET SL SCH ×2 (12:13→21:29)
[2018-06-18] MEDS: LACTOBACILLUS ACIDOPHILUS 1 TABLET PO SCH (14:31)
--- NOTE | 2018-06-18 19:08 | EKG ---
Test Reason : Blood Pressure : / mmHG Vent. Rate : 104 BPM Atrial Rate : 104 BPM P-R Int : 152 ms QRS Dur : 080 ms QT Int : 340 ms P-R-T Axes : 078 082 071 degrees QTc Int : 447 ms POOR DATA QUALITY, INTERPRETATION MAY BE ADVERSELY AFFECTED SINUS TACHYCARDIA RIGHT ATRIAL ENLARGEMENT ST ELEVATION, CONSIDER EARLY REPOLARIZATION, PERICARDITIS, OR INJURY NONSPECIFIC ST AND T WAVE ABNORMALITY ABNORMAL ECG WHEN COMPARED WITH ECG OF 04-JUN-2018 17:15, NO SIGNIFICANT CHANGE WAS FOUND Confirmed by NIDIA ROUSE, CHANDRIKA ([id number]) on 06/18/2018 7:07:41 PM Referred By: Confirmed By:CHANDRIKA JACOB MD
[2018-06-18] MEDS: THIAMINE HCL 100 MG TABLET (FP) PO SCH (21:28)
[2018-06-18] MEDS: traZODone HCL 50 MG TABLET (FP) PO SCH (21:29)
[2018-06-18] MEDS: MIRTAZAPINE 30 MG TABLET (FP) PO SCH (21:29)
[2018-06-19] MEDS: CYCLOBENZAPRINE HCL 10 MG TABLET (FP) PO SCH ×3 (06:12→21:13)
[2018-06-19] MEDS: PANTOPRAZOLE 40 MG TABLET (FP) PO SCH (10:52)
[2018-06-19] MEDS: LACTOBACILLUS ACIDOPHILUS 1 TABLET PO SCH (10:52)
[2018-06-19] MEDS: NICOTINE 21 MG/24 HOURS TOPICAL PATCH TD SCH (10:52)
[2018-06-19] MEDS: PRENATAL VITAMINS W/ FOLIC ACID TABLET (FP) PO SCH (10:52)
[2018-06-19] MEDS: BUPRENORPHINE/NALOXONE 2 MG/0.5 MG FILM PACKET SL SCH ×2 (10:52→21:13)
[2018-06-19] MEDS: hydrOXYzine PAMOATE 50 MG CAPSULE (FP) PO PRN ×3 (10:53→21:18)
[2018-06-19] MEDS: DIPHENOXYLATE 2.5/ATROPINE.025 1 COMBO TABLET PO PRN ×2 (10:59→21:19)
[2018-06-19] MEDS: MIRTAZAPINE 30 MG TABLET (FP) PO SCH (21:13)
[2018-06-19] MEDS: THIAMINE HCL 100 MG TABLET (FP) PO SCH (21:13)
[2018-06-19] MEDS: traZODone HCL 50 MG TABLET (FP) PO SCH (21:13)
[2018-06-19] MEDS: SUVOREXANT 10 MG TABLET PO PRN (21:16)
[2018-06-20] MEDS: CYCLOBENZAPRINE HCL 10 MG TABLET (FP) PO SCH ×3 (06:17→21:14)
[2018-06-20] MEDS: BUPRENORPHINE/NALOXONE 2 MG/0.5 MG FILM PACKET SL SCH (10:35)
[2018-06-20] MEDS: PRENATAL VITAMINS W/ FOLIC ACID TABLET (FP) PO SCH (10:35)
[2018-06-20] MEDS: hydrOXYzine PAMOATE 50 MG CAPSULE (FP) PO PRN ×2 (10:35→21:13)
[2018-06-20] MEDS: NICOTINE 21 MG/24 HOURS TOPICAL PATCH TD SCH (10:36)
[2018-06-20] MEDS: LACTOBACILLUS ACIDOPHILUS 1 TABLET PO SCH (10:36)
[2018-06-20] MEDS: PANTOPRAZOLE 40 MG TABLET (FP) PO SCH (10:36)
[2018-06-20] MEDS: NICOTINE POLACRILEX 2 MG GUM BC PRN (10:36)
--- NOTE | 2018-06-20 11:21 | PN ---
S Progress Note Note: CDIFF RESULTS NEGATIVE FOR ANTIGEN. PATIENT STATES BOWEL MOVEMENTS MORE FORMED. WILL D/C LOMOTIL AND ADD PEPTO-BISMUL DAILY. CONTINUE TO MONITOR CLINICALLY.
[2018-06-20] MEDS: BISMUTH SUBSALICYLATE 262 MG/15 ML BTL PO SCH (14:10)
--- NOTE | 2018-06-20 14:34 | PN ---
[facility] COWS - Scale Resting Pulse: 2= NM 101-120 Sweatin= Chills/Flushing Restless Observation: 1= Difficult to Sit Still Pupil Size: 2= Moderately Dilated Bone or Joint Aches: 1= Mild Discomfort Runny Nose/ Eye Tearin= None GI Upset > 30mins: 2= Nausea/Diarrhea Tremor Observation of Outstretched Hands: 1= Tremor [place], Not Seen Yawning Observation: 0= None Anxiety or Irritability: 1=Feels Anxious/Irritable Goose Flesh Skin: 0=Smooth Skin COWS Score: 11 S Progress Note (SOAP) Subjective: PATIENT C/O ANXIETY, DIARRHEA (IMPROVED BUT ONGOING), RESTLESSNESS AND CHILLS. Objective: 06/20/18 14:31 Vital Signs Temperature 98.7 F 06/20/18 06:46 Pulse Rate 103 H 06/20/18 06:46 Respiratory Rate 18 06/20/18 06:46 Blood Pressure 113/68 06/20/18 06:46 O2 Sat by Pulse Oximetry (%) Laboratory Tests 06/04/18 06/05/18 06/05/18 22:27 05:50 05:50 WBC 8.6 RBC 3.91 L Hgb 11.5 L Hct 34.0 L MCV 87.0 MCH 29.3 MCHC 33.7 RDW 14.1 Plt Count 317 MPV 7.6 Sodium 139 Potassium 3.5 Chloride 99 Carbon Dioxide 31 Anion Gap 10 BUN 11 Creatinine 0.9 Creat Clearance w eGFR > 60 Random Glucose 98 Calcium 8.9 Total Bilirubin 0.3 AST 15 ALT 12 L Alkaline Phosphatase 107 Total Protein 7.9 Albumin 3.6 Urine Color Yellow Urine Appearance Slcloudy Urine pH 6.0 Ur Specific [place] 1.026 Urine Protein 1+ H Urine Glucose (UA) Negative Urine Ketones Negative Urine Blood Negative Urine Nitrite Negative Urine Bilirubin 2.0 Urine Urobilinogen 4.0 e.u/dl Ur Leukocyte Esterase Negative Urine WBC (Auto) 3 Urine RBC (Auto) 5 Ur Epithelial Cells Rare Urine Bacteria Rare Urine Mucus Few RPR Titer T.pallidum Ab ([facility]) 06/05/18 05:50 WBC RBC Hgb Hct MCV MCH MCHC RDW Plt Count MPV Sodium Potassium Chloride Carbon Dioxide Anion Gap BUN Creatinine Creat Clearance w eGFR Random Glucose Calcium Total Bilirubin AST ALT Alkaline Phosphatase Total Protein Albumin Urine Color Urine Appearance Urine pH Ur Specific [place] Urine Protein Urine Glucose (UA) Urine Ketones Urine Blood Urine Nitrite Urine Bilirubin Urine Urobilinogen Ur Leukocyte Esterase Urine WBC (Auto) Urine RBC (Auto) Ur Epithelial Cells Urine Bacteria Urine Mucus RPR Titer Reactive 1:8 H T.pallidum Ab ([facility]) Reactive PE: ALERT AND ORIENTED X 3 SKIN +GOOSEFLESH EXT FULL ROM, NO EDEMA +ANXIETY, +RESTLESSNESS Assessment: 06/20/18 14:33 WITHDRAWAL SX Plan: INCREASE SUBOXONE TO 8MG/2MG DAILY STARTING TOMORROW ENCOURAGE ORAL FLUIDS CONTINUE TO MONITOR CLINICALLY
[2018-06-20] MEDS: MIRTAZAPINE 30 MG TABLET (FP) PO SCH (21:13)
[2018-06-20] MEDS: SUVOREXANT 10 MG TABLET PO PRN (21:13)
[2018-06-20] MEDS: THIAMINE HCL 100 MG TABLET (FP) PO SCH (21:14)
[2018-06-20] MEDS: traZODone HCL 50 MG TABLET (FP) PO SCH (21:14)
[2018-06-20] MEDS ORDERED: BUPRENORPHINE/NALOXONE 2 MG/0.5 MG FILM PACKET SL ONE (22:00)
[2018-06-20] MEDS ORDERED: PT OWN MED DRAWER 7, Y5N ONE (22:07)
[2018-06-21] MEDS: CYCLOBENZAPRINE HCL 10 MG TABLET (FP) PO SCH ×3 (06:08→21:23)
[2018-06-21] MEDS: hydrOXYzine PAMOATE 50 MG CAPSULE (FP) PO PRN ×3 (10:04→21:23)
[2018-06-21] MEDS: PANTOPRAZOLE 40 MG TABLET (FP) PO SCH (10:04)
[2018-06-21] MEDS: PRENATAL VITAMINS W/ FOLIC ACID TABLET (FP) PO SCH (10:04)
[2018-06-21] MEDS: NICOTINE 21 MG/24 HOURS TOPICAL PATCH TD SCH (10:05)
[2018-06-21] MEDS: BUPRENORPHINE/NALOXONE 8 MG/2 MG FILM PACKET SL SCH (10:05)
[2018-06-21] MEDS: LACTOBACILLUS ACIDOPHILUS 1 TABLET PO SCH (10:06)
[2018-06-21] MEDS: BISMUTH SUBSALICYLATE 262 MG/15 ML BTL PO SCH (10:07)
[2018-06-21] MEDS: PENICILLIN G BENZATHINE 2,400,000 UNIT/4 ML PFS IM SCH (10:24)
[2018-06-21] MEDS: THIAMINE HCL 100 MG TABLET (FP) PO SCH (21:22)
[2018-06-21] MEDS: SUVOREXANT 10 MG TABLET PO PRN (21:22)
[2018-06-21] MEDS: traZODone HCL 50 MG TABLET (FP) PO SCH (21:23)
[2018-06-21] MEDS: MIRTAZAPINE 30 MG TABLET (FP) PO SCH (21:23)
[2018-06-21] MEDS ORDERED: SUVOREXANT 10 MG TABLET PO PRN (22:00)
[2018-06-22] MEDS: CYCLOBENZAPRINE HCL 10 MG TABLET (FP) PO SCH ×3 (05:58→21:15)
[2018-06-22] MEDS: hydrOXYzine PAMOATE 50 MG CAPSULE (FP) PO PRN ×4 (05:59→21:15)
[2018-06-22] MEDS: BUPRENORPHINE/NALOXONE 8 MG/2 MG FILM PACKET SL SCH (09:56)
[2018-06-22] MEDS: PRENATAL VITAMINS W/ FOLIC ACID TABLET (FP) PO SCH (09:57)
[2018-06-22] MEDS: PANTOPRAZOLE 40 MG TABLET (FP) PO SCH (09:57)
[2018-06-22] MEDS: NICOTINE 21 MG/24 HOURS TOPICAL PATCH TD SCH (09:57)
[2018-06-22] MEDS: LACTOBACILLUS ACIDOPHILUS 1 TABLET PO SCH (09:58)
[2018-06-22] MEDS: BISMUTH SUBSALICYLATE 262 MG/15 ML BTL PO SCH (09:59)
[2018-06-22] MEDS ORDERED: PT OWN MED DRAWER 7, Y5N ONE (09:59)
[2018-06-22] MEDS: NICOTINE POLACRILEX 2 MG GUM BC PRN ×3 (10:00→21:16)
[2018-06-22] MEDS: traZODone HCL 50 MG TABLET (FP) PO SCH (21:15)
[2018-06-22] MEDS: THIAMINE HCL 100 MG TABLET (FP) PO SCH (21:15)
[2018-06-22] MEDS: MIRTAZAPINE 30 MG TABLET (FP) PO SCH (21:15)
[2018-06-23] MEDS: CYCLOBENZAPRINE HCL 10 MG TABLET (FP) PO SCH ×3 (06:10→21:16)
[2018-06-23] MEDS: PRENATAL VITAMINS W/ FOLIC ACID TABLET (FP) PO SCH (09:41)
[2018-06-23] MEDS: NICOTINE 21 MG/24 HOURS TOPICAL PATCH TD SCH (09:41)
[2018-06-23] MEDS: PANTOPRAZOLE 40 MG TABLET (FP) PO SCH (09:41)
[2018-06-23] MEDS: BUPRENORPHINE/NALOXONE 8 MG/2 MG FILM PACKET SL SCH (09:41)
[2018-06-23] MEDS: hydrOXYzine PAMOATE 50 MG CAPSULE (FP) PO PRN ×3 (09:42→21:17)
[2018-06-23] MEDS: NICOTINE POLACRILEX 2 MG GUM BC PRN ×2 (09:43→14:28)
[2018-06-23] MEDS: LACTOBACILLUS ACIDOPHILUS 1 TABLET PO SCH (10:00)
[2018-06-23] MEDS: BISMUTH SUBSALICYLATE 262 MG/15 ML BTL PO SCH (10:00)
--- NOTE | 2018-06-23 13:19 | PN ---
S Progress Note Note: PATIENT C/O RASH TO BILATERAL FOREARM AND DRY SKIN. PATIENT ALERT AND ORIENTED X 3, SKIN WARM AND DRY. + MACULAR RED RASH TO BILATERAL FOREARMS. NO LESIONS OR OPEN AREAS NOTED. A/P RASH/ECZEMA. WILL START HYDROCORTISONE CREAM TO RASH BID AND CONTINUE TO MONITOR CLINICALLY. Vital Signs Temperature 98.3 F 06/23/18 07:02 Pulse Rate 100 H 06/23/18 07:02 Respiratory Rate 06/23/18 07:02 Blood Pressure 106/63 06/23/18 07:02 O2 Sat by Pulse Oximetry (%)
[2018-06-23] MEDS: MIRTAZAPINE 30 MG TABLET (FP) PO SCH (21:16)
[2018-06-23] MEDS: THIAMINE HCL 100 MG TABLET (FP) PO SCH (21:16)
[2018-06-23] MEDS: traZODone HCL 50 MG TABLET (FP) PO SCH (21:16)
[2018-06-23] MEDS: HYDROCORTISONE 0.5% TOPICAL CREAM 30 GM TUBE TP SCH (21:18)
[2018-06-23] MEDS: ACETAMINOPHEN 325 MG TABLET (FP) PO PRN (23:23)
[2018-06-23] MEDS: MELATONIN 5 MG TABLETS PO PRN (23:24)
[2018-06-24] MEDS: CYCLOBENZAPRINE HCL 10 MG TABLET (FP) PO SCH ×3 (06:16→21:27)
[2018-06-24] MEDS ORDERED: PT OWN MED DRAWER 7, Y5N ONE ×2 (09:04→20:11)
[2018-06-24] MEDS: PRENATAL VITAMINS W/ FOLIC ACID TABLET (FP) PO SCH (09:49)
[2018-06-24] MEDS: BUPRENORPHINE/NALOXONE 8 MG/2 MG FILM PACKET SL SCH (09:49)
[2018-06-24] MEDS: PANTOPRAZOLE 40 MG TABLET (FP) PO SCH (09:49)
[2018-06-24] MEDS: LACTOBACILLUS ACIDOPHILUS 1 TABLET PO SCH (09:49)
[2018-06-24] MEDS: BISMUTH SUBSALICYLATE 262 MG/15 ML BTL PO SCH (09:49)
[2018-06-24] MEDS: NICOTINE 21 MG/24 HOURS TOPICAL PATCH TD SCH (09:49)
[2018-06-24] MEDS: HYDROCORTISONE 0.5% TOPICAL CREAM 30 GM TUBE TP SCH ×2 (09:49→21:29)
[2018-06-24] MEDS: hydrOXYzine PAMOATE 50 MG CAPSULE (FP) PO PRN ×2 (09:50→14:32)
[2018-06-24] MEDS: NICOTINE POLACRILEX 2 MG GUM BC PRN ×2 (09:50→14:32)
--- NOTE | 2018-06-24 14:34 | PN ---
S Progress Note Note: PATIENT C/O INSOMNIA DESPITE TREATMENT WITH MELATONIN, REMERON AND TRAZODONE. WILL RECONSULT WITH PSYCH TEAM TO EVALUATE POSSIBLE CHANGES IN TREATMENT. Vital Signs Temperature 97.7 F 06/24/18 07:22 Pulse Rate 98 H 06/24/18 07:22 Respiratory Rate 17 06/24/18 07:22 Blood Pressure 113/67 06/24/18 07:22 O2 Sat by Pulse Oximetry (%)
--- NOTE | 2018-06-24 15:06 | PN ---
S Progress Note Note: Patient complains of sleeping poorly despite taking Remeron 30 mg and Belsomra 10 mg at bedtime. Discuss with patient about increasing Belsomra dosage to 15 mg po HS prn for insomnia
[2018-06-24] MEDS: MIRTAZAPINE 30 MG TABLET (FP) PO SCH (21:27)
[2018-06-24] MEDS: MELATONIN 5 MG TABLETS PO PRN (21:28)
[2018-06-24] MEDS: THIAMINE HCL 100 MG TABLET (FP) PO SCH (21:28)
[2018-06-24] MEDS: traZODone HCL 50 MG TABLET (FP) PO SCH (21:28)
[2018-06-24] MEDS ORDERED: SUVOREXANT 10 MG TABLET PO PRN (22:00)
[2018-06-24] MEDS: SUVOREXANT 15 MG TABLET PO PRN (22:08)
[2018-06-25] MEDS: CYCLOBENZAPRINE HCL 10 MG TABLET (FP) PO SCH ×3 (06:11→21:25)
[2018-06-25] MEDS: hydrOXYzine PAMOATE 50 MG CAPSULE (FP) PO PRN ×4 (06:11→21:26)
[2018-06-25] MEDS: BUPRENORPHINE/NALOXONE 8 MG/2 MG FILM PACKET SL SCH (10:01)
[2018-06-25] MEDS: NICOTINE 21 MG/24 HOURS TOPICAL PATCH TD SCH (10:01)
[2018-06-25] MEDS: PRENATAL VITAMINS W/ FOLIC ACID TABLET (FP) PO SCH (10:01)
[2018-06-25] MEDS: PANTOPRAZOLE 40 MG TABLET (FP) PO SCH (10:01)
[2018-06-25] MEDS ORDERED: PT OWN MED DRAWER 7, Y5N ONE (10:02)
[2018-06-25] MEDS: BISMUTH SUBSALICYLATE 262 MG/15 ML BTL PO SCH (10:02)
[2018-06-25] MEDS: HYDROCORTISONE 0.5% TOPICAL CREAM 30 GM TUBE TP SCH ×2 (10:02→21:27)
[2018-06-25] MEDS: LACTOBACILLUS ACIDOPHILUS 1 TABLET PO SCH (10:02)
[2018-06-25] MEDS: NICOTINE POLACRILEX 2 MG GUM BC PRN ×2 (15:37→21:27)
[2018-06-25] MEDS: traZODone HCL 50 MG TABLET (FP) PO SCH (21:25)
[2018-06-25] MEDS: THIAMINE HCL 100 MG TABLET (FP) PO SCH (21:25)
[2018-06-25] MEDS: MELATONIN 5 MG TABLETS PO PRN (21:25)
[2018-06-25] MEDS: SUVOREXANT 15 MG TABLET PO PRN (21:25)
[2018-06-25] MEDS: MIRTAZAPINE 30 MG TABLET (FP) PO SCH (21:29)
[2018-06-26] MEDS: hydrOXYzine PAMOATE 50 MG CAPSULE (FP) PO PRN ×4 (06:22→21:25)
[2018-06-26] MEDS: CYCLOBENZAPRINE HCL 10 MG TABLET (FP) PO SCH ×3 (06:22→21:24)
[2018-06-26] MEDS: BUPRENORPHINE/NALOXONE 8 MG/2 MG FILM PACKET SL SCH (09:48)
[2018-06-26] MEDS: PRENATAL VITAMINS W/ FOLIC ACID TABLET (FP) PO SCH (09:48)
[2018-06-26] MEDS: LACTOBACILLUS ACIDOPHILUS 1 TABLET PO SCH (09:49)
[2018-06-26] MEDS: NICOTINE POLACRILEX 2 MG GUM BC PRN ×2 (09:49→15:14)
[2018-06-26] MEDS: NICOTINE 21 MG/24 HOURS TOPICAL PATCH TD SCH (09:49)
[2018-06-26] MEDS: HYDROCORTISONE 0.5% TOPICAL CREAM 30 GM TUBE TP SCH ×2 (09:49→21:25)
[2018-06-26] MEDS: PANTOPRAZOLE 40 MG TABLET (FP) PO SCH (09:49)
[2018-06-26] MEDS: BISMUTH SUBSALICYLATE 262 MG/15 ML BTL PO SCH (09:49)
[2018-06-26] MEDS: traZODone HCL 50 MG TABLET (FP) PO SCH (21:24)
[2018-06-26] MEDS: THIAMINE HCL 100 MG TABLET (FP) PO SCH (21:24)
[2018-06-26] MEDS: MIRTAZAPINE 30 MG TABLET (FP) PO SCH (21:24)
[2018-06-26] MEDS: MELATONIN 5 MG TABLETS PO PRN (21:25)
[2018-06-27] MEDS: CYCLOBENZAPRINE HCL 10 MG TABLET (FP) PO SCH ×3 (06:28→21:56)
[2018-06-27] MEDS: hydrOXYzine PAMOATE 50 MG CAPSULE (FP) PO PRN ×3 (06:28→21:15)
[2018-06-27] MEDS: NICOTINE POLACRILEX 2 MG GUM BC PRN ×4 (06:29→21:16)
[2018-06-27] MEDS: NICOTINE 21 MG/24 HOURS TOPICAL PATCH TD SCH (09:54)
[2018-06-27] MEDS: BUPRENORPHINE/NALOXONE 8 MG/2 MG FILM PACKET SL SCH (09:55)
[2018-06-27] MEDS: PRENATAL VITAMINS W/ FOLIC ACID TABLET (FP) PO SCH (09:55)
[2018-06-27] MEDS: PANTOPRAZOLE 40 MG TABLET (FP) PO SCH (09:55)
[2018-06-27] MEDS: LACTOBACILLUS ACIDOPHILUS 1 TABLET PO SCH (10:44)
[2018-06-27] MEDS: HYDROCORTISONE 0.5% TOPICAL CREAM 30 GM TUBE TP SCH ×2 (10:45→21:56)
[2018-06-27] MEDS: BISMUTH SUBSALICYLATE 262 MG/15 ML BTL PO SCH (10:45)
[2018-06-27] MEDS ORDERED: PT OWN MED DRAWER 7, Y5N ONE (11:44)
[2018-06-27] MEDS: MIRTAZAPINE 30 MG TABLET (FP) PO SCH (21:14)
[2018-06-27] MEDS: THIAMINE HCL 100 MG TABLET (FP) PO SCH (21:14)
[2018-06-27] MEDS: MELATONIN 5 MG TABLETS PO PRN (21:14)
[2018-06-27] MEDS: traZODone HCL 50 MG TABLET (FP) PO SCH (21:14)
[2018-06-27] MEDS ORDERED: SUVOREXANT 15 MG TABLET PO PRN (22:00)
[2018-06-28] MEDS: CYCLOBENZAPRINE HCL 10 MG TABLET (FP) PO SCH ×3 (06:38→21:03)
[2018-06-28] MEDS ORDERED: PT OWN MED DRAWER 7, Y5N ONE ×2 (08:27→19:28)
[2018-06-28] MEDS: LACTOBACILLUS ACIDOPHILUS 1 TABLET PO SCH (09:53)
[2018-06-28] MEDS: HYDROCORTISONE 0.5% TOPICAL CREAM 30 GM TUBE TP SCH (09:53)
[2018-06-28] MEDS: BUPRENORPHINE/NALOXONE 8 MG/2 MG FILM PACKET SL SCH (09:53)
[2018-06-28] MEDS: PANTOPRAZOLE 40 MG TABLET (FP) PO SCH (09:53)
[2018-06-28] MEDS: PRENATAL VITAMINS W/ FOLIC ACID TABLET (FP) PO SCH (09:53)
[2018-06-28] MEDS: NICOTINE 21 MG/24 HOURS TOPICAL PATCH TD SCH (09:53)
[2018-06-28] MEDS: hydrOXYzine PAMOATE 50 MG CAPSULE (FP) PO PRN ×3 (09:54→21:04)
[2018-06-28] MEDS: BISMUTH SUBSALICYLATE 262 MG/15 ML BTL PO SCH (10:45)
[2018-06-28] MEDS: MIRTAZAPINE 30 MG TABLET (FP) PO SCH (21:03)
[2018-06-28] MEDS: traZODone HCL 50 MG TABLET (FP) PO SCH (21:03)
[2018-06-28] MEDS: THIAMINE HCL 100 MG TABLET (FP) PO SCH (21:03)
[2018-06-28] MEDS: HYDROCORTISONE 2.5% TOPICAL CREAM 30 GM TUBE TP SCH (21:04)
[2018-06-28] MEDS: MELATONIN 5 MG TABLETS PO PRN (21:04)
[2018-06-29] MEDS: CYCLOBENZAPRINE HCL 10 MG TABLET (FP) PO SCH ×3 (06:00→21:26)
[2018-06-29] MEDS: LACTOBACILLUS ACIDOPHILUS 1 TABLET PO SCH (09:38)
[2018-06-29] MEDS: PRENATAL VITAMINS W/ FOLIC ACID TABLET (FP) PO SCH (09:38)
[2018-06-29] MEDS: HYDROCORTISONE 2.5% TOPICAL CREAM 30 GM TUBE TP SCH ×2 (09:38→21:32)
[2018-06-29] MEDS: PANTOPRAZOLE 40 MG TABLET (FP) PO SCH (09:38)
[2018-06-29] MEDS: BISMUTH SUBSALICYLATE 262 MG/15 ML BTL PO SCH (09:38)
[2018-06-29] MEDS: BUPRENORPHINE/NALOXONE 8 MG/2 MG FILM PACKET SL SCH (09:38)
[2018-06-29] MEDS: NICOTINE 21 MG/24 HOURS TOPICAL PATCH TD SCH (09:38)
[2018-06-29] MEDS: hydrOXYzine PAMOATE 50 MG CAPSULE (FP) PO PRN ×3 (09:39→21:28)
[2018-06-29] MEDS: NICOTINE POLACRILEX 2 MG GUM BC PRN (16:42)
[2018-06-29] MEDS: MIRTAZAPINE 30 MG TABLET (FP) PO SCH (21:26)
[2018-06-29] MEDS: MELATONIN 5 MG TABLETS PO PRN (21:26)
[2018-06-29] MEDS: traZODone HCL 50 MG TABLET (FP) PO SCH (21:26)
[2018-06-29] MEDS: THIAMINE HCL 100 MG TABLET (FP) PO SCH (21:26)
[2018-06-30] MEDS: hydrOXYzine PAMOATE 50 MG CAPSULE (FP) PO PRN ×3 (06:12→21:15)
[2018-06-30] MEDS: CYCLOBENZAPRINE HCL 10 MG TABLET (FP) PO SCH ×3 (06:12→21:15)
[2018-06-30] MEDS ORDERED: PT OWN MED DRAWER 7, Y5N ONE (08:48)
[2018-06-30] MEDS: NICOTINE 21 MG/24 HOURS TOPICAL PATCH TD SCH (10:12)
[2018-06-30] MEDS: PANTOPRAZOLE 40 MG TABLET (FP) PO SCH (10:12)
[2018-06-30] MEDS: BUPRENORPHINE/NALOXONE 8 MG/2 MG FILM PACKET SL SCH (10:12)
[2018-06-30] MEDS: PRENATAL VITAMINS W/ FOLIC ACID TABLET (FP) PO SCH (10:12)
[2018-06-30] MEDS: LACTOBACILLUS ACIDOPHILUS 1 TABLET PO SCH (10:12)
[2018-06-30] MEDS: HYDROCORTISONE 2.5% TOPICAL CREAM 30 GM TUBE TP SCH ×2 (10:13→21:18)
[2018-06-30] MEDS: BISMUTH SUBSALICYLATE 262 MG/15 ML BTL PO SCH (10:14)
[2018-06-30] MEDS: NICOTINE POLACRILEX 2 MG GUM BC PRN ×2 (10:15→21:18)
[2018-06-30] MEDS: MELATONIN 5 MG TABLETS PO PRN (21:15)
[2018-06-30] MEDS: traZODone HCL 50 MG TABLET (FP) PO SCH (21:15)
[2018-06-30] MEDS: MIRTAZAPINE 30 MG TABLET (FP) PO SCH (21:15)
[2018-06-30] MEDS: THIAMINE HCL 100 MG TABLET (FP) PO SCH (21:15)
[2018-06-30] MEDS ORDERED: SUVOREXANT 15 MG TABLET PO PRN (22:00)
[2018-07-01] MEDS: hydrOXYzine PAMOATE 50 MG CAPSULE (FP) PO PRN ×3 (06:05→21:28)
[2018-07-01] MEDS: CYCLOBENZAPRINE HCL 10 MG TABLET (FP) PO SCH ×3 (06:05→21:28)
[2018-07-01] MEDS: PANTOPRAZOLE 40 MG TABLET (FP) PO SCH (10:08)
[2018-07-01] MEDS: BUPRENORPHINE/NALOXONE 8 MG/2 MG FILM PACKET SL SCH (10:08)
[2018-07-01] MEDS: LACTOBACILLUS ACIDOPHILUS 1 TABLET PO SCH (10:08)
[2018-07-01] MEDS: NICOTINE 21 MG/24 HOURS TOPICAL PATCH TD SCH (10:08)
[2018-07-01] MEDS: PRENATAL VITAMINS W/ FOLIC ACID TABLET (FP) PO SCH (10:08)
[2018-07-01] MEDS: BISMUTH SUBSALICYLATE 262 MG/15 ML BTL PO SCH ×2 (10:09→10:55)
[2018-07-01] MEDS: HYDROCORTISONE 2.5% TOPICAL CREAM 30 GM TUBE TP SCH ×2 (10:09→21:29)
[2018-07-01] MEDS: NICOTINE POLACRILEX 2 MG GUM BC PRN ×2 (10:11→21:30)
[2018-07-01] MEDS: cloNIDine HCL 0.1 MG TABLET PO PRN (14:32)
[2018-07-01] MEDS ORDERED: PT OWN MED DRAWER 7, Y5N ONE (14:37)
--- NOTE | 2018-07-01 15:19 | PN ---
[facility] Progress Note Note: PATIENT SEEN FOR C/O SHAKES AND ANXIETY. PATIENT IS SCHEDULED FOR DISCHARGE TODAY HOWEVER HAD EPISODES OF DIARRHEA YESTERDAY AND NOW STATES " I FEEL SHAKY AND MY HEART IS RACING". PATIENT DENIES CHEST PAIN, SOB AND DIZZINESS. PMH INCLUDES SYPHILIS, HIV+, ANXIETY AND INSOMNIA. Vital Signs Temperature 98.2 F 07/01/18 06:46 Pulse Rate 116 H 07/01/18 06:46 Respiratory Rate 20 07/01/18 06:46 Blood Pressure 114/69 07/01/18 06:46 O2 Sat by Pulse Oximetry (%) PE: ALERT AND ORIENTED X 3 SKIN WARM AND DRY CAR S1S2, +TACHYCARDIA HR 116 RESP CTA BL EXT FULL ROM, NO EDEMA, +TREMORS +ANXIOUS A/P: SINUS TACHYCARDIA ANXIETY EPISODIC DIARRHEA WILL HOLD D/C TODAY TO MONITOR PATIENT CLINICALLY CONTINUE CLONIDINE FOR ANXIETY/ELEVATED HR LACTOBACILLUS ONGOING PEPTOBISMUL PRN ENCOURAGE ORAL FLUIDS AND MONITOR V/S
[2018-07-01] MEDS ORDERED: BISMUTH SUBSALICYLATE 262 MG/15 ML BTL PO PRN (15:46)
[2018-07-01] MEDS: traZODone HCL 50 MG TABLET (FP) PO SCH (21:27)
[2018-07-01] MEDS: THIAMINE HCL 100 MG TABLET (FP) PO SCH (21:27)
[2018-07-01] MEDS: MELATONIN 5 MG TABLETS PO PRN (21:28)
[2018-07-01] MEDS: MIRTAZAPINE 30 MG TABLET (FP) PO SCH (21:28)
[2018-07-02] MEDS: hydrOXYzine PAMOATE 50 MG CAPSULE (FP) PO PRN ×2 (05:54→10:11)
[2018-07-02] MEDS: CYCLOBENZAPRINE HCL 10 MG TABLET (FP) PO SCH (05:54)
[2018-07-02 06:49] VITALS: BP 110/88; PULSE 112; TEMP 98
--- NOTE | 2018-07-02 09:34 | PN ---
[facility] Progress Note Note: DISCHARGE NOTE: PATIENT SCHEDULED FOR DISCHARGE TODAY AND HAS AFTERCARE FOLLOW UP WITH [facility] FOR INPATIENT LONG TERM CARE 07/03/18. PATIENT TO FOLLOW UP TODAY WITH [facility] TODAY AT 3:15PM FOR PRIMARY CARE SERVICES AND THEN STAY ONE NIGHT AT [facility] PRIOR TO ADMISSION TO [facility]. PATIENT STATES HE FEELS BETTER TODAY. DENIES N/V/D, CHEST PAIN, SOB AND PALPITATIONS. STATES HE IS MILDLY ANXIOUS ABOUT HIS SOBRIETY BUT IS MOTIVATED TO CONTINUE WITH AFTERCARE. PATIENT STATES HE ACHIEVED ALL REHAB GOALS AND DENIES SI/HI. PATIENT IS MEDICALLY STABLE FOR DISCHARGE. ALBUTEROL INHALER AND ONE WEEK PRESCRIPTION OF SUBOXONE SENT TO [facility]. Vital Signs Temperature 98 F 07/02/18 06:49 Pulse Rate 112 H 07/02/18 06:49 Respiratory Rate 20 07/02/18 06:49 Blood Pressure 110/88 07/02/18 06:49 O2 Sat by Pulse Oximetry (%)
[2018-07-02] MEDS: PRENATAL VITAMINS W/ FOLIC ACID TABLET (FP) PO SCH (10:07)
[2018-07-02] MEDS: PANTOPRAZOLE 40 MG TABLET (FP) PO SCH (10:07)
[2018-07-02] MEDS: BUPRENORPHINE/NALOXONE 8 MG/2 MG FILM PACKET SL SCH (10:07)
[2018-07-02] MEDS: NICOTINE 21 MG/24 HOURS TOPICAL PATCH TD SCH (10:07)
[2018-07-02] MEDS: LACTOBACILLUS ACIDOPHILUS 1 TABLET PO SCH (10:08)
[2018-07-02] MEDS ORDERED: PT OWN MED DRAWER 7, Y5N ONE (10:09)
[2018-07-02] MEDS: HYDROCORTISONE 2.5% TOPICAL CREAM 30 GM TUBE TP SCH (10:39)
== END 2018-07-02 13:45 | disposition home or self-care (01) | DRG 772 ==
LOC: YASAS 09:24 → Y3W 15:53
PROVIDERS: ADMIT Psychiatry & Neurology Psychiatry; ATTEND Psychiatry & Neurology Psychiatry
PROC: HZ42ZZZ Group Counseling for Substance Abuse Treatment, Cognitive-Behavioral (ICD-10-PCS; principal; 2018-06-04)
DX: F11.23 Opioid dependence with withdrawal (principal); F14.20 Cocaine dependence, uncomplicated; F12.20 Cannabis dependence, uncomplicated; F16.20 Hallucinogen dependence, uncomplicated; F17.210 Nicotine dependence, cigarettes, uncomplicated; F32.9 Major depressive disorder, single episode, unspecified; F41.9 Anxiety disorder, unspecified; Z21 Asymptomatic human immunodeficiency virus [HIV] infection status; G47.00 Insomnia, unspecified; G47.9 Sleep disorder, unspecified; R00.0 Tachycardia, unspecified; R19.7 Diarrhea, unspecified; R21 Rash and other nonspecific skin eruption; A53.9 Syphilis, unspecified; K21.9 Gastro-esophageal reflux disease without esophagitis; M54.5 Low back pain; G89.29 Other chronic pain; Z87.438 Personal history of other diseases of male genital organs; Z91.5 Personal history of self-harm
CPT/HCPCS: 36415; 80053; 81003; 81015; 85027; 86593; 86780; 87324; 87449; 93005; 93010; J0735